=== PATIENT | male | born 1940 | race Caucasian/White ===

== ENCOUNTER 2024-05-31 10:24 | Emergency (ER) | payer MEDICARE, OTHER, SELFPAY ==
[2024-05-31 10:32] VITALS: BP 116/68
[2024-05-31 11:26] VITALS: BMI 33.7
[2024-05-31 11:27] VITALS: BP 143/68
--- NOTE | 2024-05-31 11:43 | ED.GENMED ---
History of Present Illness
General
Chief Complaint: Foreign Body Removal
Source: patient
Exam Limitations: none
Time Seen by Provider: 05/31/24 10:56
Nursing documentation reviewed up to this point in time: agreed with
History of Present Illness
History of Present Illness:
83-year-old male presenting to the emergency department concerns of a hearing aid that broke and got stuck in his right ear unable to remove at home came to the ER for removal denies additional concerns
Review of Systems
Review of Systems
Allergies reviewed?: Yes
All Other Systems: ROS reviewed and negative except as documented in HPI and ROS
Phy Exam
Physical Exam
Physical Exam:
GENERAL: Alert , in no apparent distress
EYE: pupils equal and reactive
NECK: Supple, no significant adenopathy.
ENT: Foreign body, hearing aid stuck in the right ear canal o/p clr, mmm.
CARDIAC: Regular rate and rhythm .
LUNGS: Clear breath sounds bilaterally, no acute respiratory distress, no wheezes/rales/rhonchi
ABDOMEN: Soft, without focal tenderness, no r/g, no cvat
NEUROLOGICAL: Alert and oriented, no focal neuro deficits
SKIN: Warm and dry, skin intact.
MUSCULOSKELETAL: No edema, well perfused.
PSYCH: Normal and appropriate interaction.
Course
Vital Signs
Initial and Last Documented VS:
Initial Vital Signs
Temp Pulse Resp BP Pulse Ox
97.9 F 67 16 116/68 100
05/31/24 10:32 05/31/24 10:32 05/31/24 10:32 05/31/24 10:32 05/31/24 10:32
Last Documented Vital Signs
Temp Pulse Resp BP Pulse Ox
97.9 F 67 16 143/68 97
05/31/24 10:32 05/31/24 10:32 05/31/24 10:32 05/31/24 11:27 05/31/24 11:30
Procedures
Foreign Body Removal-Ear
Right External canal:
Tenderness: none
Any local drainage: none
External ear canal cleaned with removal of cerumen using: curette, irrigation and irrigation and curette
Removal of foreign body using: irrigation and alligator forceps
Exam of canal after removal: no inflammation
MDM/Problems Addressed
MDM/Problems Addressed:
83-year-old male presenting to the emergency department today with concerns of a broken hearing aid stuck in his right ear. This was removed with alligator forceps and irrigation. Tolerated well no evidence of injury to the ear after the procedure
advised for outpatient follow-up return precautions given.
*Critical Care Note
Total Time (30-74mins, 75-104mins- exclusive of procedures): Not Applicable
ED Attending Note
-
Portions of this chart may have been created with voice recognition software.� Occasional wrong word or��sound alike� substitutions may have occurred due to the inherent limitations of voice recognition software.
Discharge Plan
Departure
Patient Disposition: Home (Routine Discharge)
Date of Disposition: 05/31/24
Time of Disposition: 11:44
Patient with high blood pressure during this ER visit?: No
Condition: Good
Covid-19: Not Applicable
Discharge Problem:
Acute foreign body of right ear canal
Instructions: Foreign Body in Ear (DC)
Referrals:
UNKNOWN - PT DOES,NOT KNOW [Family Provider] -
Activity Restrictions/Additional Instructions:
You came to the emergency department today with concerns of a foreign body stuck in your right ear canal. This was removed here. Return for any worsening, new or concerning symptoms.
Interventions
Interventions:
*Risk Screen - Suicide Last Done: 05/31/24 10:35
*General Assessment Last Done: 05/31/24 11:28
*Neglect/Abuse Screening Last Done: 05/31/24 10:35
ED- Fall Risk Assessment Last Done: 05/31/24 11:38
*ED COVID-19 Vaccine History Last Done: 05/31/24 11:28
Discharge Date and Time
Print Language: PALESTINIAN
== END 2024-05-31 12:00 | disposition home or self-care (01) ==
LOC: EMR 10:24
PROVIDERS: EMERGENCY PHYSICIAN Emergency Medicine
DX: T16.1XXA Foreign body in right ear, initial encounter (principal); W44.G1XA Audio device entering into or through a natural orifice, initial encounter
CPT/HCPCS: 69200; 99282

== ENCOUNTER 2025-01-28 00:20 | Emergency (ER) | payer OTHER, MEDICARE, SELFPAY ==
[2025-01-28] VITALS (12 sets, daily range): BP systolic 154–193; BP diastolic 67–94; PULSE 60
[2025-01-28 00:56] LABS: Hematocrit 39.6 % (39.0-52.0); Hemoglobin 13.5 g/dL (13.0-18.0); Mean Corp Hgb Conc. 34.1 g/dL (33.0-37.0); Mean Corpuscular Volume 94.3 fL (80.0-94.0); Nucleated Red Blood Cells % 0 % (-); Platelet Count 158 10^3/uL (130-400); Red Cell Dist. Width 13.6 % (11.5-14.5)
[2025-01-28 01:19] LABS: ALT (SGPT) 25 U/L (0-50); AST (SGOT) 24 U/L (17-59); Albumin 4.3 g/dl (3.5-5.0); Alkaline Phosphatase 91 U/L (38-126); Blood Urea Nitrogen 27 mg/dl (9-20); Calcium 9.1 mg/dl (8.4-10.2); Carbon Dioxide 22 mmol/L (22-30); Chloride 110 mmol/L (98-107); Glucose 117 mg/dl (70-99); Potassium 3.7 mmol/L (3.5-5.1); Sodium 143 mmol/L (135-145); Total Protein 7.1 g/dl (6.3-8.2); eGFR > 60.00
[2025-01-28 01:24] LABS: Troponin I 0.033 ng/ml
--- NOTE | 2025-01-28 05:46 | ED.GENMED ---
History of Present Illness
<Denise Serra DO - Last Filed: 01/28/25 06:52>
General
Chief Complaint: Breathing Problem
Source: patient
Exam Limitations: none
Time Seen by Provider: 01/28/25 05:24
Nursing documentation reviewed up to this point in time: agreed with
History of Present Illness
History of Present Illness:
The patient is an 84-year-old male with a history of pacemaker implantation in April at the AL in [facility], presenting with progressive shortness of breath, fatigue, and palpitations. Since the pacemaker was placed, the symptoms have become
progressively worse over the last month. The patient reports feeling an increased heart rate, especially when lying down, which exacerbates his shortness of breath. Currently, he experiences constant shortness of breath and has noticed significant
fatigue, stating 'I have no energy,' and episodes of lightheadedness to the point of almost falling over in a grocery store. The patient denies experiencing chest pain. He has lost 10 pounds since April. He attempted to follow up with his
cage operator but has not yet been able to do so due to difficulties accessing AL services. His blood pressure usually runs around 135/70 mmHg, but today it was noted to be 193/74 mmHg, which he stated is as high as it has ever been.
Daily medications include valsartan 320 mg, HCTZ 25 mg, atorvastatin.
Past History
<Denise Serra DO - Last Filed: 01/28/25 06:52>
Past History
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
ED Past Surgical History: Cardiac (Pacemaker insertion April 2024 at AL in [place]) and Other (Skin cancer removals from back)
Social History
Tobacco: Non-smoker
Alcohol: None
Drug: None
Personal:
Living: alone
Employment: Retired
Family History
Family History: Other (Noncontributory)
Review of Systems
<Denise Serra, DO - Last Filed: 01/28/25 06:52>
Review of Systems
Allergies reviewed?: Yes
Phy Exam
<Denise Serra, DO - Last Filed: 01/28/25 06:52>
Physical Exam
Physical Exam:
General: Alert, no acute distress.
Skin: Warm, dry.
Head: Normocephalic, atraumatic.
Neck: Supple, trachea midline.
Eye, Ears, Nose, Mouth, and Throat: Oral mucosa moist.
Cardiovascular: Normal peripheral perfusion, no edema.
Respiratory: Respirations are non-labored. Scant bibasilar rales.
Gastrointestinal: Abdomen nondistended.
Back: Normal range of motion, Normal alignment.
Musculoskeletal: Normal range of motion, normal strength.
Neurological: Alert and oriented to person, place, time, and situation; No focal neurological deficit observed. Motor strength is 5/5 bilaterally. Gross sensation is intact.
Psychiatric: Cooperative, appropriate mood & affect.
Scores
<Bruno Bain, DO - Last Filed: 01/28/25 09:39>
Heart Failure Risk
Heart Failure Risk Score: Not Applicable
Course
<Denise Serra, DO - Last Filed: 01/28/25 06:52>
Orders/Labs/Results
Orders:
Orders
01/28/25 00:25
EKG [Electrocardiogram (*1)] Urgent
Reason for Study: Shortness of Breath
EKG- Treatment ONCE
01/28/25 00:37
CR Chest - 2 Views Urgent
Comment:
Reason For Exam: sob hx pacer
01/28/25 00:44
Complete Blood Count/With Diff Urgent
Comprehensive Metabolic Panel Urgent
Free T4 Urgent
NT-proBNP Urgent
TSH Reflex To Free T4 Urgent
Comment: ADD ON
Troponin I Urgent
01/28/25 05:36
Interrogate Pacemaker- Treatment ONCE
01/28/25 05:39
Troponin I Urgent
01/28/25 05:44
Add On- LAB Urgent
Tests Added?: TSH w reflex to free T-4
Orthostatic VS- Treatment ONCE
Orthostatic VS- Treatment ONCE
Orthostatic Vital Signs As Directed
Orthostatic VS Frequency: Now
01/28/25 05:45
CT Chest PE Study Urgent
Comment:
Reason For Exam: progressive SOB, MORROW, near syncope
CT Head W/o Iv Contrast Urgent
Comment:
Reason For Exam: gen weakness
01/28/25 08:13
Furosemide [Lasix] 40 mg IV NOW STA
01/28/25 Lunch
Cholesterol Lowering
At Your Request: Full Participation
Cholesterol Lowering: Sodium, 2 Gram
01/28/25 10:23
CARDIOLOGY CONSULT Routine
Consulting Provider: Michel Morales
Was physician already notified: Yes
01/28/25 10:24
PRN Pain Medication Management As Directed
May give lesser potent ordered pain med per pt: Yes
preference::
Protocol:: Medication orders for pain may be administered in a
manner that supports deferring to patient preference
when the pt is:
- Requesting an ordered lesser potent pain medication.
Least to most potent pain medications are defined
as: acetaminophen < NSAID < tramadol < opioids
(morphine, oxycodone, hydromorphone).
- Requesting a lesser dose of the same medication IF
ORDERED.
- Requesting a less intrusive route of administration
if both routes are prescribed by the provider (PO <
IV).
01/28/25 10:26
Code Status As Directed
Resuscitation Status: Full Code
01/28/25 10:28
Valsartan [Diovan] 160 mg PO NOW STA
01/28/25 11:00
Flush (0.9% Sodium Chloride) [Flush (Nss)] See Dose Instructions IV PER PROTOCOL
01/30/25 11:00
DC Protocol for Telemetry ONCE
Abnormal Lab Results
01/28/25
00:44
RBC 4.20 L 10^6/uL
(4.70-6.10)
MCV 94.3 H fL
(80.0-94.0)
MCH 32.1 H pg
(27.0-31.0)
MPV 12.6 H fL
(7.4-10.4)
Abs Immat Gran (auto) 0.1 H 10^3/uL
(0-0.05)
Absolute Monos (auto) 0.7 H 10^3/uL
(0.1-0.6)
Immature Gran % 0.6 H %
(0-0.5)
Chloride 110 H mmol/L
(98-107)
BUN 27 H mg/dl
(9-20)
Glucose 117 H mg/dl
(70-99)
TSH (Reflex) 11.00 H uIU/ml
(0.47-4.68)
01/28/25 00:44
01/28/25 00:44
Vital Signs
Initial and Last Documented VS:
Initial Vital Signs
Temp Pulse Resp BP Pulse Ox
97.9 F 60 32 185/94 95
01/28/25 00:28 01/28/25 00:28 01/28/25 00:28 01/28/25 00:28 01/28/25 00:28
Last Documented Vital Signs
Temp Pulse Resp BP Pulse Ox
97.9 F 60 20 155/89 95
01/28/25 00:28 01/28/25 15:35 01/28/25 15:35 01/28/25 15:35 01/28/25 15:35
<Bruno Salazar Bain, DO - Last Filed: 01/28/25 09:39>
Orders/Labs/Results
Orders:
Orders
01/28/25 00:25
EKG [Electrocardiogram (*1)] Urgent
Reason for Study: Shortness of Breath
EKG- Treatment ONCE
01/28/25 00:37
CR Chest - 2 Views Urgent
Comment:
Reason For Exam: sob hx pacer
01/28/25 00:44
Complete Blood Count/With Diff Urgent
Comprehensive Metabolic Panel Urgent
Free T4 Urgent
NT-proBNP Urgent
TSH Reflex To Free T4 Urgent
Comment: ADD ON
Troponin I Urgent
01/28/25 05:36
Interrogate Pacemaker- Treatment ONCE
01/28/25 05:39
Troponin I Urgent
01/28/25 05:44
Add On- LAB Urgent
Tests Added?: TSH w reflex to free T-4
Orthostatic VS- Treatment ONCE
Orthostatic VS- Treatment ONCE
Orthostatic Vital Signs As Directed
Orthostatic VS Frequency: Now
01/28/25 05:45
CT Chest PE Study Urgent
Comment:
Reason For Exam: progressive SOB, MORROW, near syncope
CT Head W/o Iv Contrast Urgent
Comment:
Reason For Exam: gen weakness
01/28/25 08:13
Furosemide [Lasix] 40 mg IV NOW STA
01/28/25 Lunch
Cholesterol Lowering
At Your Request: Full Participation
Cholesterol Lowering: Sodium, 2 Gram
01/28/25 10:23
CARDIOLOGY CONSULT Routine
Consulting Provider: Michel Morales
Was physician already notified: Yes
01/28/25 10:24
PRN Pain Medication Management As Directed
May give lesser potent ordered pain med per pt: Yes
preference::
Protocol:: Medication orders for pain may be administered in a
manner that supports deferring to patient preference
when the pt is:
- Requesting an ordered lesser potent pain medication.
Least to most potent pain medications are defined
as: acetaminophen < NSAID < tramadol < opioids
(morphine, oxycodone, hydromorphone).
- Requesting a lesser dose of the same medication IF
ORDERED.
- Requesting a less intrusive route of administration
if both routes are prescribed by the provider (PO <
IV).
01/28/25 10:26
Code Status As Directed
Resuscitation Status: Full Code
01/28/25 10:28
Valsartan [Diovan] 160 mg PO NOW STA
01/28/25 11:00
Flush (0.9% Sodium Chloride) [Flush (Nss)] See Dose Instructions IV PER PROTOCOL
01/30/25 11:00
DC Protocol for Telemetry ONCE
Abnormal Lab Results
01/28/25
00:44
RBC 4.20 L 10^6/uL
(4.70-6.10)
MCV 94.3 H fL
(80.0-94.0)
MCH 32.1 H pg
(27.0-31.0)
MPV 12.6 H fL
(7.4-10.4)
Abs Immat Gran (auto) 0.1 H 10^3/uL
(0-0.05)
Absolute Monos (auto) 0.7 H 10^3/uL
(0.1-0.6)
Immature Gran % 0.6 H %
(0-0.5)
Chloride 110 H mmol/L
(98-107)
BUN 27 H mg/dl
(9-20)
Glucose 117 H mg/dl
(70-99)
TSH (Reflex) 11.00 H uIU/ml
(0.47-4.68)
01/28/25 00:44
01/28/25 00:44
Vital Signs
Initial and Last Documented VS:
Initial Vital Signs
Temp Pulse Resp BP Pulse Ox
97.9 F 60 32 185/94 95
01/28/25 00:28 01/28/25 00:28 01/28/25 00:28 01/28/25 00:28 01/28/25 00:28
Last Documented Vital Signs
Temp Pulse Resp BP Pulse Ox
97.9 F 60 20 155/89 95
01/28/25 00:28 01/28/25 15:35 01/28/25 15:35 01/28/25 15:35 01/28/25 15:35
<Jason Nicolas, DO - Last Filed: 01/28/25 15:48>
Orders/Labs/Results
Orders:
Orders
01/28/25 00:25
EKG [Electrocardiogram (*1)] Urgent
Reason for Study: Shortness of Breath
EKG- Treatment ONCE
01/28/25 00:37
CR Chest - 2 Views Urgent
Comment:
Reason For Exam: sob hx pacer
01/28/25 00:44
Complete Blood Count/With Diff Urgent
Comprehensive Metabolic Panel Urgent
Free T4 Urgent
NT-proBNP Urgent
TSH Reflex To Free T4 Urgent
Comment: ADD ON
Troponin I Urgent
01/28/25 05:36
Interrogate Pacemaker- Treatment ONCE
01/28/25 05:39
Troponin I Urgent
01/28/25 05:44
Add On- LAB Urgent
Tests Added?: TSH w reflex to free T-4
Orthostatic VS- Treatment ONCE
Orthostatic VS- Treatment ONCE
Orthostatic Vital Signs As Directed
Orthostatic VS Frequency: Now
01/28/25 05:45
CT Chest PE Study Urgent
Comment:
Reason For Exam: progressive SOB, MORROW, near syncope
CT Head W/o Iv Contrast Urgent
Comment:
Reason For Exam: gen weakness
01/28/25 08:13
Furosemide [Lasix] 40 mg IV NOW STA
01/28/25 Lunch
Cholesterol Lowering
At Your Request: Full Participation
Cholesterol Lowering: Sodium, 2 Gram
01/28/25 10:23
CARDIOLOGY CONSULT Routine
Consulting Provider: Michel Morales
Was physician already notified: Yes
01/28/25 10:24
PRN Pain Medication Management As Directed
May give lesser potent ordered pain med per pt: Yes
preference::
Protocol:: Medication orders for pain may be administered in a
manner that supports deferring to patient preference
when the pt is:
- Requesting an ordered lesser potent pain medication.
Least to most potent pain medications are defined
as: acetaminophen < NSAID < tramadol < opioids
(morphine, oxycodone, hydromorphone).
- Requesting a lesser dose of the same medication IF
ORDERED.
- Requesting a less intrusive route of administration
if both routes are prescribed by the provider (PO <
IV).
01/28/25 10:26
Code Status As Directed
Resuscitation Status: Full Code
01/28/25 10:28
Valsartan [Diovan] 160 mg PO NOW STA
01/28/25 11:00
Flush (0.9% Sodium Chloride) [Flush (Nss)] See Dose Instructions IV PER PROTOCOL
01/30/25 11:00
DC Protocol for Telemetry ONCE
Abnormal Lab Results
01/28/25
00:44
RBC 4.20 L 10^6/uL
(4.70-6.10)
MCV 94.3 H fL
(80.0-94.0)
MCH 32.1 H pg
(27.0-31.0)
MPV 12.6 H fL
(7.4-10.4)
Abs Immat Gran (auto) 0.1 H 10^3/uL
(0-0.05)
Absolute Monos (auto) 0.7 H 10^3/uL
(0.1-0.6)
Immature Gran % 0.6 H %
(0-0.5)
Chloride 110 H mmol/L
(98-107)
BUN 27 H mg/dl
(9-20)
Glucose 117 H mg/dl
(70-99)
TSH (Reflex) 11.00 H uIU/ml
(0.47-4.68)
01/28/25 00:44
01/28/25 00:44
Vital Signs
Initial and Last Documented VS:
Initial Vital Signs
Temp Pulse Resp BP Pulse Ox
97.9 F 60 32 185/94 95
01/28/25 00:28 01/28/25 00:28 01/28/25 00:28 01/28/25 00:28 01/28/25 00:28
Last Documented Vital Signs
Temp Pulse Resp BP Pulse Ox
97.9 F 60 20 155/89 95
01/28/25 00:28 01/28/25 15:35 01/28/25 15:35 01/28/25 15:35 01/28/25 15:35
<Denise Serra, DO - Last Filed: 01/28/25 06:52>
MDM/Problems Addressed
Differential Diagnosis Includes:
The Differential Diagnosis includes, in no particular order and is not limited to:
1. Congestive heart failure
2. Pacemaker malfunction or lead displacement
3. Atrial fibrillation or other arrhythmia
4. Hypertension-related cardiac issues
5. Chronic obstructive pulmonary disease (COPD)
6. Medication side effects
7. Deconditioning
8. Anemia
9. Coronary artery disease
10. Anxiety or stress-related cardiomyopathy.
11. CVA less likely
12. PE
Chronic conditions affecting care: HTN and Other (Pacemaker)
<Denise Serra DO - Last Filed: 01/28/25 06:52>
*Radiology
Radiology exam reviewed: preliminary read by ED provider (Chest x-ray shows mild interstitial fullness concerning for mild CHF. Top normal heart size.)
*Pulse Oximetry
SaO2: 91
Oxygen Mode of Delivery: Room air
Patient hypoxic: no
*EKG
Interpreted by ED Provider?: Yes
Interpretation: abnormal
Comparison EKG: no comparison EKG present
Heart Rate: 60
Rate: normal
Rhythm: ventricular paced (Ventricular paced rhythm)
*Tooling Inspector Interpretation
Rate: normal
Rhythm: ventricular paced
*Critical Care Note
Total Time (30-74mins, 75-104mins- exclusive of procedures): Not Applicable
<Denise Serra DO - Last Filed: 01/28/25 06:52>
Update Note
Update Note:
05:45
Pacemaker interrogated.
Pacemaker inserted April 22, 2024. Apparently this is a Micra AV leadless pacemaker and as such no arrhythmia detection available for this device. Also AV synchrony cannot be confirmed with [employer] transmissions. It is however showing
us that patient is 13% ventricular sensed, 86% ventricular pacing. Pacemaker mode is VVI with lower rate of 60.
Orthostatic vital signs difficult to obtain but overall negative. Patient noted to have marked severe dyspnea upon standing with marked generalized weakness of his legs, unable to hold his weight while standing. There was no change in heart rate
from lying to standing. No significant change in blood pressure.
There is note of some interstitial fullness/mild CHF on chest x-ray but not appreciable Opelika Tory findings. As such concern for PE thus will check CT of the chest/PE study.
Due to generalized weakness, however not lateralizing there is also some considered for CVA thus will check CT of the head.
<Bruno Lincoln Odell, DO - Last Filed: 01/28/25 09:39>
Update Note
Update Note:
I evaluated patient at bedside. I informed him that there is no sign of PE however there is concern for heart failure/pleural effusion. I recommended IV diuresis. He initially told me that he has had his to stay in the hospital citing severe
panic attacks and he cannot stay still. I did assist him in standing and he seemed somewhat unsteady. He was unable to urinate on his own with standing. I placed him back in the bed and he now agrees to stay in the hospital feeling that if we can
diurese him maybe this will help with the shortness of breath thereby decreasing the likelihood of panic. The panic generally occurs when he feels short of breath.
<Jason Nicolas, DO - Last Filed: 01/28/25 15:48>
Update Note
Update Note:
I evaluated patient at bedside. I informed him that there is no sign of PE however there is concern for heart failure/pleural effusion. I recommended IV diuresis. He initially told me that he has had his to stay in the hospital citing severe
panic attacks and he cannot stay still. I did assist him in standing and he seemed somewhat unsteady. He was unable to urinate on his own with standing. I placed him back in the bed and he now agrees to stay in the hospital feeling that if we can
diurese him maybe this will help with the shortness of breath thereby decreasing the likelihood of panic. The panic generally occurs when he feels short of breath.
330pm
I was asked to discharge the patient by the hospitalist team who had evaluated the patient patient apparently declined admission
Subsequently the patient walked to the front of the ER slid out of a chair I was asked to reevaluate the patient again here he is awake alert and oriented, states he is going to go home he [facility] appears comfortable, did not
hit his head, he appears competent to make this decision
ED Attending Note
<Dneise Serra, DO - Last Filed: 01/28/25 06:52>
-
Portions of this chart may have been created with voice recognition software.� Occasional wrong word or��sound alike� substitutions may have occurred due to the inherent limitations of voice recognition software.
Discharge Plan
Departure
Patient Disposition: Home (Routine Discharge)
Date of Disposition: 01/28/25
Time of Disposition: 08:28
Patient with high blood pressure during this ER visit?: No
Condition: Good
Covid-19: Not Applicable
Discharge Problem:
Heart failure
Interventions
Interventions:
*Risk Screen - Suicide Last Done: 01/28/25 00:28
*General Assessment Last Done: 01/28/25 05:08
*Neglect/Abuse Screening Last Done: 01/28/25 05:08
*ED- Fall Risk Assessment Last Done: 01/28/25 05:08
*ED COVID-19 Vaccine History Last Done: 01/28/25 05:08
*Nursing Disposition Last Done: 01/28/25 15:35
ED- Cardiac Assessment Last Done: 01/28/25 05:00
ED- Pulmonary Assessment Last Done: 01/28/25 05:00
Discharge Date and Time
Discharge Date/Time: 01/28/25 15:37
[2025-01-28 06:19] LABS: Troponin I 0.029 ng/ml
[2025-01-28] MEDS: LASIX 40 MG IV (08:38)
[2025-01-28] MEDS: DIOVAN 160 MG PO (11:15)
--- NOTE | 2025-01-28 11:21 | CON.CAR ---
Addendum entered and electronically signed by Michel Morales MD 01/28/25 15:32:
I saw and examined the patient.
Dr Cabrales's note was reviewed and I agree with the note.
Comment:
IV diuresis
However, patient adamant on leaving and likely sign out AMA.
Refused echo.
Original Note:
Consultation
Consultation Request
Date/Time Consultation Requested: 01/28/25
Date/Time Consultation Performed: 01/28/25
Medical History
-
Chief Complaint: shortness of breath
History of Present Illness:
Patient is a 4-year-old male, with past medical history significant for essential hypertension, hyperlipidemia, hypothyroidism, BPH who presented to the ER with complaint of shortness of breath for past 2 to 3 weeks. Patient states that he
hadPacemaker implantation done in April 2024 for at the [place] in [facility] for sick sinus syndrome. Other than that, he did not follow-up with any final installer inspector. He had been experiencing progressive shortness of breath for past couple of months
but for the last 1 week it was consistent and he panicked about it and [facility] but he did not hear back from them and that is why he came to the ER. The shortness of breath is not related to exertion but is present at all times even
at rest and is associated with orthopnea. In addition, he reports fatigue and decreased energy and a weight loss of about 10 pounds in the last 6 months.
He has decreased appetite and feels drained all the time
Patient denies any chest pain, diaphoresis, palpitations.
Patient is a former smoker and quit more than 65 years ago but he never drinks alcohol.
He has varied sleep patterns but denies any apnea episodes waking him up in sleep.
Of note, patient has hypothyroidism and is on levothyroxine, TSH 11 with normal free T4.
Past Medical History
Past Medical History: Arrhythmias (Sick sinus syndrome s/p pacemaker April 2024), HTN, Hypercholesterolemia and Hypothyroidism
Past Surgical History: Other (History of excision of skin cancers from back, history of pacemaker implantation in April 2020)
Social History
Tobacco: Former Smoker (Quit 65 years ago)
Alcohol: None
Drug: None
Personal:
Living: Alone
Employment: Retired
Family History
Family History: Reviewed & Not Pertinent
Allergies / Home Medications
Allergy/AdvReac Type Severity Reaction Status Date / Time
No Known Allergies Allergy Unverified 05/31/24 10:35
�Medication �Instructions �Recorded �Confirmed �Type
amlodipine 5 mg tablet (Norvasc) 5 mg PO DAILY 01/28/25 01/28/25 History
atorvastatin 10 mg tablet (Lipitor) 10 mg PO DAILY 01/28/25 01/28/25 History
coQ10 (ubiquinol) 100 mg capsule 100 mg PO DAILY 01/28/25 01/28/25 History
cyclosporine 0.05 % eye drops in a 1 drp BOTH EYES Q12H 01/28/25 01/28/25 History
dropperette (Restasis)
hydrochlorothiazide 25 mg tablet 25 mg PO DAILY 01/28/25 01/28/25 History
levothyroxine 88 mcg tablet 88 mcg PO DAILY 01/28/25 01/28/25 History
(Synthroid)
magnesium oxide 400 mg PO DAILY 01/28/25 01/28/25 History
potassium 99 mg tablet 99 mg PO DAILY 01/28/25 01/28/25 History
tamsulosin 0.4 mg capsule (Flomax) 0.4 mg PO HS 01/28/25 01/28/25 History
tiotropium bromide 2.5 2 inh inhalation R DAILY 01/28/25 01/28/25 History
mcg/actuation mist for inhalation
(Spiriva Respimat)
valsartan 160 mg tablet 160 mg PO DAILY 01/28/25 01/28/25 History
Review of Systems
-
All other systems: Negative unless noted
Physical Exam
Vital Signs
Temp Pulse Resp BP Pulse Ox
97.9 F 60 15 192/93 95
01/28/25 00:28 01/28/25 10:00 01/28/25 09:00 01/28/25 08:02 01/28/25 08:02
Lab Results
01/28/25 00:44
01/28/25 00:44
Troponin I 0.029 ng/ml 01/28/25 05:39
Ukb-A-Ycicwqufwui Pept 6450 pg/ml 01/28/25 00:44
Physical Exam
General: Well Developed, No Apparent Distress and Comfortable (Breathing on room air)
HEENT: Other (Hard of hearing, wears hearing aids)
Respiratory: Non Labored Respirations and Other (Decreased breath sounds at lung bases)
Cardiac: S1/S2, Regular Rhythm and Other (Mild pedal edema); Negative Murmur or Rub
GI: Soft, Non Tender and Other (No hepatojugular reflux)
Rectal: Deferred by Provider
Musculoskeletal: No Clubbing, No Cyanosis and No Edema
Skin: Warm and Dry
Neuro: Awake and AO x 3
Psych: Calm
Impression / Plan
-
Impression
Patient is an 84-year-old male with past medical history significant for sick sinus syndrome s/p pacemaker in April 2024, hypertension, hypothyroidism with exertional dyspnea, elevated proBNP, weight loss, decreased appetite and orthopnea.
Fulfills Thor Heart Failure criteria with cardiomegaly, mild pulmonary edema and bilateral pleural effusions along with weight loss and orthopnea.
Patient responded to 40 mg Lasix in the ER and currently is breathing without any issues
Assessment/plan
Essential hypertension
Elevated TSH
Elevated proBNP
Exertional dyspnea
Small bilateral pleural effusions and mild pulmonary congestion
Pacemaker
Plan
Check orthostatic vitals
Low-dose diuretics, Lasix 20 mg IV daily
Echocardiography to assess functional status of left ventricle and heart pressures
Add GDMT as able
Optimize blood pressure control and hypothyroidism
Input/output monitoring, trend weights, look for dry weight of the patient
Monitor electrolytes and replete as needed
Keep an eye on serum creatinine/BUN/bicarb to avoid overdiuresis
Sodium restriction
Keep in differentials SAMMIE
--- NOTE | 2025-01-28 15:27 | EDRN ---
ECHO came to bedside to complete testing on pt. automotive diagnostic technician alerted RN that the pt. took himself off the monitor and removed his IV and was getting himself dressed. RN at bedside to discuss why pt. did so. Pt. states he wants to leave. RN cleaned up
pt's arm and educated pt why its important to stay in the hospital. Pt. states he needs to walk around. RN explained that he needs to stay on the conveyor monitor and cannot be walking around currently. Pt. still not agreeable to staying. Pt. agreed
to sit with monitor on until doc came to talk to pt. Dr. Castanon contacted via [facility] who reached out to Dr. Bain to just discharge from the ED and withdraw admission. Dr. Bain reached out to Dr. Nicolas who agreed to discharge. Pt.
still wanting to leave when RN brought back paperwork.
--- NOTE | 2025-01-28 15:37 | W.PN.UPDATE ---
Update Note
Progress Note Update
Patient refusing admission.
Cancel admission orders.
Discussed with ED physician, patient will be discharged from the ED.
--- NOTE | 2025-01-28 15:51 | EDRN ---
Pt. fell while trying to sit in a chair in the waiting room for a ride. Wheelchair had been offered to pt to go out to the waiting room but pt denied stating 'i need to walk.' Pt. brought back to room. Pt did not hit his head, no loc, no trauma
noted to pt. Pt. denies pain any where and would still like to leave. Dr. Nicolas came to bedside to eval pt. Pt. was assessed by Dr. Nicolas and cleared to for discharge. Pt. agreeable to wheelchair to be taken back out to waiting room for his ride.
Incident report to be filed.
--- NOTE | 2025-01-28 17:25 | CM ---
Attempted to meet with pt in ED but pt refusing admission and requested discharge. Discharged to home from ED.
== END 2025-01-28 15:37 | disposition home or self-care (01) ==
LOC: EMR 00:20
PROVIDERS: ATTENDING PHYSICIAN Family Medicine; CONSULT PHYSICIAN Internal Medicine Cardiovascular Disease; EMERGENCY PHYSICIAN Emergency Medicine
DX: I11.0 Hypertensive heart disease with heart failure (principal); I50.9 Heart failure, unspecified; E78.00 Pure hypercholesterolemia, unspecified; I49.5 Sick sinus syndrome; E03.9 Hypothyroidism, unspecified; N40.0 Benign prostatic hyperplasia without lower urinary tract symptoms; Z95.0 Presence of cardiac pacemaker; Z87.891 Personal history of nicotine dependence
CPT/HCPCS: 70450; 71046; 71275; 80053; 83880; 84439; 84443; 84484; 85025; 93005; 93288; 96374; 99285; Q9967